=== PATIENT | male | born 1980 | race Caucasian/White ===

== ENCOUNTER 2022-10-13 11:09 | Emergency (ER) | payer OTHER ==
[2022-10-13 11:15] VITALS: BP 118/68; PULSE 80; RESP 16; TEMP 97.9; BMI 24.7
[2022-10-13] MEDS ORDERED: predniSONE 20 MG TABLET (UD) PO ONE (13:19)
[2022-10-13] MEDS ORDERED: predniSONE 20 MG TABLET (UD) ONE (13:23)
== END 2022-10-13 14:09 | disposition home or self-care (01) ==
LOC: JERFT 11:09
DX: R21 Rash and other nonspecific skin eruption (principal)
CPT/HCPCS: 87651; 99283-25